=== PATIENT | male | born 1990 | race Caucasian/White ===

== ENCOUNTER 2021-05-13 21:32 | Emergency (ER) | payer MEDICAID ==
[~2021-05-13] VITALS: Ht 185.4 cm; Wt 90.7 kg
--- NOTE | 2021-05-13 21:40 | NUR ---
Dr Escudero at bedside for MSE.
--- NOTE | 2021-05-13 21:43 | NUR ---
pt ambulated to ER c/o right side chest pain. also states having right arm tingling. clear speech. no sob. AOx4. afebrile.
[2021-05-13 22:08] LABS: HEMATOCRIT 40.6 % (36.7-47.1); MEAN CORPUSCULAR HEMOGLOBIN 31.5 uug (23.8-33.4); PLATELET COUNT (AUTO) 167 K/uL (152-348)
[2021-05-13 22:11] LABS: CARBON DIOXIDE 30 mmol/L (21-32); CHLORIDE 104 mmol/L (98-107); CREATININE 1.1 mg/dL (0.6-1.3); GLUCOSE 126 mg/dL (74-106); POTASSIUM 3.9 mmol/L (3.5-5.1); UREA NITROGEN, BLOOD 17 mg/dL (7-18)
[2021-05-13 22:24] LABS: ALANINE AMINOTRANSFERASE 55 U/L (16-63); ALKALINE PHOSPHATASE 36 U/L (50-136); ASPARTATE AMINOTRANSFERASE 21 U/L (15-37); BILIRUBIN,DIRECT 0.2 mg/dL (0.0-0.2); TOTAL PROTEIN, SERUM 7.6 g/dL (6.4-8.2)
--- NOTE | 2021-05-14 00:41 | NUR ---
Patient discharged to home in stable condition. Written and verbal after care instructions given. Patient verbalizes understanding of instructions. Stressed follow up or return to ER for worsening s/s. pt ambulated with steady gait. denies pain. no sob. no chest pain. afebrile.
[2021-05-14 00:42] VITALS: BP 140/84
== END 2021-05-14 00:43 | disposition home or self-care (01) ==
LOC: ER 21:35
DX: R07.9 Chest pain, unspecified (principal); Z82.49 Family history of ischemic heart disease and other diseases of the circulatory system; R03.0 Elevated blood-pressure reading, without diagnosis of hypertension
CPT/HCPCS: 36415; 71045; 84484; 85025; 93005

== ENCOUNTER 2021-07-08 20:41 | Emergency (ER) | payer SELFPAY ==
--- NOTE | 2021-07-08 22:50 | NUR ---
Called patient to be triaged but was not present in the waiting room or outside of ER.
--- NOTE | 2021-07-08 23:00 | NUR ---
Patient was called to be traiged butwas not present in the waiting room or outside of ER.
--- NOTE | 2021-07-08 23:15 | NUR ---
Patient was called to be triaged but was not present. PATIENT WAS NOT TRIAGED OR SEEN BY ERMD.
== END 2021-07-08 23:15 | disposition left against medical advice (07) ==
LOC: ER 20:43
DX: Z53.21 Procedure and treatment not carried out due to patient leaving prior to being seen by health care provider (principal)

== ENCOUNTER 2021-07-10 01:58 | Emergency (ER) | payer MEDICAID ==
[~2021-07-10] VITALS: Ht 180.3 cm; Wt 90.7 kg
--- NOTE | 2021-07-10 02:23 | NUR ---
Dr Marley at bedside, MSE in progress.
[2021-07-10] MEDS ORDERED: LORA0.5T48 PO (02:28)
[2021-07-10 02:33] VITALS: BP 139/82
--- NOTE | 2021-07-10 02:33 | NUR ---
Patient discharged to home in stable condition. Written and verbal after care instructions given. Patient verbalizes understanding of instructions. Stressed follow up or return to ER for worsening s/s. pt ambulated with steady gait. denies pain. no SOB. no chest pain. AOx4
== END 2021-07-10 02:34 | disposition home or self-care (01) ==
LOC: ER 01:58
DX: R22.0 Localized swelling, mass and lump, head (principal); R03.0 Elevated blood-pressure reading, without diagnosis of hypertension; G47.00 Insomnia, unspecified
CPT/HCPCS: A4663

== ENCOUNTER 2021-07-24 21:58 | Emergency (ER) | payer MEDICAID ==
[~2021-07-24] VITALS: Ht 180.3 cm; Wt 89.4 kg
[~2021-07-24 21:58] MED LIST: LORA0.5T48 PO
--- NOTE | 2021-07-24 22:05 | NUR ---
Dr. Marley at bedside for MSE.
[2021-07-24] MEDS ORDERED: NITROGLYCERIN OINT 1 GM PACKET TP ONE ×3 (22:15→22:24)
[2021-07-24] MEDS ORDERED: ACETAMINOPHEN ES 500 MG TABLET PO ONE (22:15)
[2021-07-24] MEDS ORDERED: NITROGLYCERIN 0.4 MG/TAB BOTTLE SL ONE (22:15)
[2021-07-24] MEDS ORDERED: ASPIRIN 81 MG TAB.CHEW PO ONE (22:15)
[2021-07-24] MEDS ORDERED: ACETAMINOPHEN ES 500 MG TABLET ONE (22:23)
[2021-07-24] MEDS ORDERED: LORAZEPAM 1 MG TABLET ONE (22:24)
[2021-07-24] MEDS ORDERED: ASPIRIN 81 MG TAB.CHEW ONE (22:24)
[2021-07-24 22:30] LABS: HEMATOCRIT 41.3 % (36.7-47.1); MEAN CORPUSCULAR HEMOGLOBIN 30.5 uug (23.8-33.4); MEAN CORPUSCULAR VOLUME 87.8 fL (73.0-96.2); PLATELET COUNT (AUTO) 156 K/uL (152-348)
[2021-07-24] MEDS ORDERED: LORAZEPAM 0.5 MG TABLET PO ONE (22:30)
[2021-07-24 22:39] LABS: CARBON DIOXIDE 28 mmol/L (21-32); CHLORIDE 102 mmol/L (98-107); CREATININE 1.2 mg/dL (0.6-1.3); GLUCOSE 121 mg/dL (74-106); POTASSIUM 3.5 mmol/L (3.5-5.1); UREA NITROGEN, BLOOD 18 mg/dL (7-18)
[2021-07-24 22:52] LABS: ALANINE AMINOTRANSFERASE 36 U/L (16-63); ALKALINE PHOSPHATASE 41 U/L (50-136); ASPARTATE AMINOTRANSFERASE 17 U/L (15-37); BILIRUBIN,DIRECT 0.2 mg/dL (0.0-0.2); BILIRUBIN,TOTAL 0.8 mg/dL (0.2-1.0); TOTAL PROTEIN, SERUM 7.8 g/dL (6.4-8.2)
[2021-07-25] MEDS ORDERED: LORA0.5T48 PO (02:01)
--- NOTE | 2021-07-25 02:14 | NUR ---
Patient discharged to home in stable condition. Written and verbal after care instructions given. Patient verbalizes understanding of instructions. Stressed follow up or return to ER for worsening s/s. Patient out of ER with steady gait, no acute signs of distress, VSS, all belongings taken, provided with copies of lab, ekg, and xray results.
[2021-07-25 02:15] VITALS: BP 124/60
== END 2021-07-25 02:15 | disposition home or self-care (01) ==
LOC: ER 21:59
DX: R07.9 Chest pain, unspecified (principal); R94.31 Abnormal electrocardiogram [ECG] [EKG]; R00.0 Tachycardia, unspecified
CPT/HCPCS: 36415; 71045; 84484; 85025; 85730; 93005; A4663; A9150